=== PATIENT | female | born 1970 | race Caucasian/White ===

== ENCOUNTER 2021-05-29 12:27 | Outpatient (CLI) | payer BC | END 2021-05-29 12:28 | disposition home or self-care (01) | LOC: CSHCT 12:27 | PROVIDERS: ATTEND Surgery | DX: M43.16 Spondylolisthesis, lumbar region (principal); M43.17 Spondylolisthesis, lumbosacral region; M48.061 Spinal stenosis, lumbar region without neurogenic claudication; M51.36 Other intervertebral disc degeneration, lumbar region | CPT/HCPCS: 72120; 72131 ==

== ENCOUNTER 2021-08-03 12:52 | Outpatient (CLI) | payer BC | END 2021-08-03 12:53 | disposition home or self-care (01) | LOC: CSHRAD 12:52 | PROVIDERS: ATTEND Surgery | DX: M54.16 Radiculopathy, lumbar region (principal); Z98.890 Other specified postprocedural states | CPT/HCPCS: 72100 ==